=== PATIENT | female | born 1950 | race Hispanic/Latino ===

== ENCOUNTER 2018-05-21 12:05 | Outpatient (CLI) | payer MEDICARE | END 2018-05-21 12:06 | disposition home or self-care (01) | LOC: BICRAD 12:05 | PROVIDERS: ATTEND Internal Medicine | DX: R07.9 Chest pain, unspecified (principal); M54.6 Pain in thoracic spine; I70.0 Atherosclerosis of aorta | CPT/HCPCS: 71046; 72072 ==

== ENCOUNTER 2018-05-25 10:24 | Outpatient (CLI) | payer MEDICARE ==
--- NOTE | 2018-05-25 13:44 | RAD ---
CERVICAL SPINE SERIES WITH FLEXION AND EXTENSION AND OBLIQUE 8 VIEWS: HISTORY: Neck pain, numbness in both hands. FINDINGS: The vertebral bodies maintain normal height. Severe disk narrowing is seen at C5-6 and C6-7. There is a retrolisthesis of C5 on C6 which appears to become minimally accentuated in extension. There is limited motion in flexion or extension at C6-7. There is an anterolisthesis of C4 on C5 which incre ases in flexion and reduces in extension. IMPRESSION: Arthritic changes of the spine as discussed above. POS: DARY
== END 2018-05-25 10:25 | disposition home or self-care (01) ==
LOC: BICRAD 10:24
PROVIDERS: ATTEND Internal Medicine
DX: M54.2 Cervicalgia (principal); M47.892 Other spondylosis, cervical region
CPT/HCPCS: 72052

== ENCOUNTER 2024-07-08 06:48 | Outpatient (CLI) | payer MEDICARE | END 2024-07-08 06:49 | disposition home or self-care (01) | LOC: MRI 06:48 | PROVIDERS: ATTEND Family Medicine Sports Medicine | DX: M75.111 Incomplete rotator cuff tear or rupture of right shoulder, not specified as traumatic (principal); I70.0 Atherosclerosis of aorta; M19.011 Primary osteoarthritis, right shoulder; M25.411 Effusion, right shoulder; M94.211 Chondromalacia, right shoulder | CPT/HCPCS: 71046 ==